=== PATIENT | female | born 1990 | race Caucasian/White ===

== ENCOUNTER 2021-12-26 23:00 | Emergency (ER) | payer BC, OTHER ==
[2021-12-26] MEDS ORDERED: LEVO-55 PO (23:24)
--- NOTE | 2021-12-26 23:25 | ED Lower Extremity ---
General Chief Complaint: Lower Extremity Stated Complaint: RIGHT BIG TOE PAIN Nursing Triage Note: PT ARRIVAL TO ER WITH PAIN TO RIGHT FIRST TOE FOR REDNESS AND SWELLING X4 MONTHS. PATIENT STATES THAT SHE JUST FINISHED A 10 DAY SUPPLY OF ORAL DOXYCYCLINE AND HAS ALSO RECENTLY BEEN ON CLINDAMYCIN. TOE IS REDDENED AND SORE TO TOUCH. PATIENT UNABLE TO SEE ISOTOPE TECHNICIAN DUE TO THEM ALL BEING BOOKED OUT. Source: patient Exam Limitations: no limitations History of Present Illness Date Seen by Provider: Dec 26, 2021 Time Seen by Provider: 23:23 Initial Comments Patient presents for redness and swelling to the right great toe for 4 months. She just finished a 10-day supply of doxycycline is been on clindamycin for 20 days prior to that. States it is red and tender to palpation and walking. She has seen a ceramics technician in the past and states she is having difficulty getting back in. No fevers chills nausea or vomiting. Allergies and Home Medications Allergies Coded Allergies: sulfamethoxazole (Verified Allergy, Unknown, 12/26/21) trimethoprim (Verified Allergy, Unknown, 12/26/21) Patient Home Medication List Home Medication List Reviewed: Yes Levofloxacin (Levofloxacin) 500 Mg Tablet, 500 MG PO DAILY Prescribed by: CHAI HEREDIA MD on 12/26/21 7344 Review of Systems Constitutional: no symptoms reported EENTM: no symptoms reported Respiratory: no symptoms reported Cardiovascular: no symptoms reported Gastrointestinal: no symptoms reported Genitourinary: no symptoms reported Musculoskeletal: other (Right great toe pain) Skin: other (Redness of the right great toe) Psychiatric/Neurological: No Symptoms Reported Past [id number] Hx Patient Social History Tobacco Use?: No Use of E-Cig and/or Vaping dev: No Substance use?: No Alcohol Use?: No Pt feels they are or have been: No Immunizations Up To Date Influenza Vaccine Up-to-Date: No; Not Current Family Medical History Reviewed Nursing Family Hx No Pertinent Family Hx Physical Exam Vital Signs Vital Signs - First Documented 12/26/21 12/26/21 23:13 23:23 Temp 36.8 Pulse 67 Resp 16 B/P (MAP) 125/67 (86) Pulse Ox 100 O2 Delivery Room Air Capillary Refill : Less Than 3 Seconds Height, Weight, BMI Height: '" Weight: lbs. oz. kg; BMI Method: General Appearance: WD/WN, no apparent distress HEENT: normal ENT inspection, pharynx normal Neck: supple, normal inspection Cardiovascular: regular rate, rhythm, no edema, no murmur Respiratory: chest non-tender, lungs clear, normal breath sounds, no respiratory distress Gastrointestinal: normal bowel sounds, non tender, soft Feet: right foot other (Right great toe is erythematous. Lateral aspects have scabbed areas. No drainable paronychia.) Neurologic/Psychiatric: alert, oriented x 3 Skin: other (Erythema to the midportion of the right great toe.) Progress/Results/Core Measures Results/Orders My Orders Orders - CHAI HEREDIA DO Levofloxacin Tablet (Levaquin Tablet) (12/26/21 23:30) Vital Signs/I&O 12/26/21 12/26/21 23:13 23:23 Temp 36.8 Pulse 67 Resp 16 B/P (MAP) 125/67 (86) Pulse Ox 100 O2 Delivery Room Air Blood Pressure Mean: 86 Departure Communication (Admissions) Patient is hemodynamically stable with no evidence for systemic infection. She has had symptoms for 4 months now has seen podiatry twice. We will give her antibiotics and refer her back to podiatry she likely needs a toenail removed. Impression Primary Impression: Infection of great toe Disposition: 01 HOME, SELF-CARE Condition: Stable Departure-Patient Inst. Referrals: NO,LOCAL PHYSICIAN (PCP/Family) Primary Care Physician Patient Instructions: Ingrown Toenail (DC) Add. Discharge Instructions: Take the antibiotics as prescribed until they are gone. Call to schedule an appointment podiatry as you likely need the toenail removed. All discharge instructions reviewed with patient and/or family. Voiced understanding. Scripts Levofloxacin (Levofloxacin) 500 Mg Tablet 500 MG PO DAILY for 7 Days, #7 TAB Prov: CHAI HEREDIA DO 12/26/21 CHAI HEREDIA DO Dec 26, 2021 23:25
[2021-12-26 23:34] VITALS: BP 125/67
== END 2021-12-26 23:33 | disposition home or self-care (01) ==
LOC: ER 23:01
DX: L08.9 Local infection of the skin and subcutaneous tissue, unspecified (principal); Z88.2 Allergy status to sulfonamides; Z28.310 Unvaccinated for COVID-19
CPT/HCPCS: 99283